=== PATIENT | male | born 1985 | race Caucasian/White ===

== ENCOUNTER 2018-11-12 18:35 | Inpatient (IN) | payer MEDICAID ==
[2018-11-12] MEDS ORDERED: NS 1,000 ML IV ONE (19:03)
--- NOTE | 2018-11-12 19:05 | EDPHY ---
General - History Smoking Status: Never smoked Time Seen by Provider: 11/12/18 19:03 Narrative: CLINICAL IMPRESSION: Multiple abrasions, left chest wall pain, distal right radius fracture, intractable pain ASSESSMENT/PLAN: Patient is a 33-year-old male who presents to the emergency department after sustaining a tumble down approximately 20 ft while Bouldering earlier today. Patient very uncomfortable appearing however not toxic-appearing. Patient's neurological exam is grossly normal with no focal deficit. The patient did not hit his head, there was no loss of consciousness. No findings to suggest traumatic head injury. Patient had no neck or back pain to suggest traumatic spinal injury. CT chest abdomen and pelvis all negative for acute traumatic injury. Right wrist x-ray revealed an acute, nondisplaced distal radius fracture. Patient is on Vivitrol dep 0 shot secondary to opiate abuse, last injection was 2 weeks ago. Patient was given Ativan, multiple doses of ketamine , Valium and fentanyl was trialed with little relief of his discomfort. This case was discussed with Dr. Warner, he will be admitted to the trauma service for intractable pain. Dr. Adamson with Orthopedic surgery was also consulted, he will evaluate the patient tomorrow. On secondary assessment and prior to transfer to the floor the patient had mild relief of his pain, he remained hemodynamically stable. DIFFERENTIAL DX: Differential diagnosis including but not limited to and in no particular order, traumatic head injury, skull fracture, vertebral fracture, spinal cord injury, cauda equina, long bone injury, compartment syndrome, traumatic intrathoracic or intra abdominal injury ED COURSE: 1904: Case discussed with Dr. Osuna, she will evaluate this patient. 2031: Still awaiting formal CT results. Patient reports 8/10 pain, mostly on his anterior left chest wall. Will trial ketamine. 2055: Case discussed with Dr. Gutierrez, he reviewed the chest CT and abdominal CT with me, no findings to suggest any acute intrathoracic or intra-abdominal traumatic injury. 2124: Discussed findings with the patient. Patient currently getting wounds cleansed, feels that the ketamine and Ativan did nothing for his discomfort. He would like to try ibuprofen. Patient does have an adverse reaction history to Toradol however takes ibuprofen regularly without any issue. CHIEF COMPLAINT: Fall, multiple abrasions, left-sided chest wall pain, right wrist pain HPI: Patient is a 33-year-old male with a history of Crohn's disease and opiate abuse who presents to the emergency department after sustaining a tumbling fall while Bouldering Patient reports he climbed up what he believes to be about 20 ft, he went to grab 1 of the rocks when he lost his stucco applicator causing him to fall. He rolled hitting his chest at 1 point and scraping his arms and legs through the process. He was by himself, there were no witnesses. He was able to ambulate and self extricate. He denies hitting his head, there was no loss of consciousness. He complains of left anterior chest wall pain which worsens when he takes a deep breath, right hip pain, right wrist pain and left lower leg pain as well as multiple abrasions. He has not tried to take anything for pain prior to arrival, he is on Vivitrol for previous opiate abuse. He denies any headache, dizziness, neck or back pain. He denies any abdominal pain. Patient denies saddle paresthesias, lower extremity numbness, tingling, major motor weakness, urinary retention or bowel/bladder incontinence. He is up-to- date on his tetanus status. PMH: Crohn's, opiate abuse Pertinent Past Surgical History: Right wrist Family History: Not contributory Social History: History of opiate abuse on Vivitrol qmonthly shot, occasional marijuana use, denies alcohol use REVIEW OF SYSTEMS: All other systems negative Constitutional: No fever, no chills, appetite change. Eyes: No discharge, vision change ENT: No sore throat, congestion, ear pain. Cardiovascular: Left anterior chest pain. Respiratory: No cough, no shortness of breath. Gastrointestinal: No abdominal pain, no vomiting, diarrhea. Genitourinary: No hematuria, dysuria, flank pain. Musculoskeletal: Right wrist pain, right hip pain, left lower leg pain. Skin: Multiple abrasions. Neurological: No headache, dizziness, weakness. PHYSICAL EXAM: General Appearance: Uncomfortable appearing however not toxic-appearing. HENT: Normocephalic, atraumatic. Bilateral external ears are normal. Bilateral tympanic membranes are normal with pearly pearson reflex. No Weber sign or raccoon eyes. Nares are clear, mucosa is pink. Oropharynx is clear, uvula is midline. There is no tonsillar enlargement or exudate. The dentition is normal. There is no malocclusion, no mandibular tenderness to palpation. Eyes: PERRLA, EOMI. Conjunctiva pink, no pallor or injection. Neck: Supple, nontender, no midline pain, FROM. Back: No step-off, palpable bony abnormality, edema, erythema or ecchymosis of the thoracic or lumbar spines. TTP: Patient has no tenderness to palpation of the midline thoracic or lumbar spines, no paraspinal muscle tenderness to palpation. Full range of motion of all spines. There is a small abrasion noted to the left mid posterior thorax with no associated tenderness to palpation. 5/5 and equal strength of the UEs and LEs bilaterally including shoulder shrug. Pulses: 2+ and equal radial, DP and PT pulses bilaterally. Sensation intact and symmetric to light touch from face, UEs and LEs bilaterally. Respiratory: There are no retractions, lungs are clear to auscultation. Patient with abrasions noted to the inferior left rib costal margin with associated tenderness to palpation. There is no bony deformity. Cardiac: Regular rate and rhythm, no murmurs or gallops. Gastrointestinal: Patient with abrasion overlying his left abdomen, there is no tenderness to deep palpation in any quadrant. Bowel sounds are present, no masses or hernias appreciated. There is no rigidity, guarding or focal peritoneal findings. Neurological: Alert and oriented x 3, CN 2-12 grossly intact, normal sensation and strength Skin: Multiple abrasions, no gaping wounds or lacerations. Musculoskeletal: Bilateral shoulders are nontender with full range of motion. Left upper arm with abrasion on the medial aspect, upper arm compartment is soft. Bilateral elbows are nontender with full range of motion. Patient is able to supinate and pronate bilaterally without difficulty. Bilateral forearms with superficial abrasions on the volar aspects. Forearm compartments are both soft. Left wrist and hand are nontender with full range of motion. Right wrist is tender at the distal radius and ulna with deformity noted. Limited range of motion with flexion, extension, inversion and eversion. He has no carpal or metacarpal tenderness. Abrasion noted to middle phalanx. Mild diminished sensation over the dorsal aspect of his right hand, surgical incision noted and well healed. The radial, ulnar and median nerves were all tested bilaterally. Radial nerve: Patient is able to extend wrist and fingers of the local joints. Ulnar nerve: Patient is able to abduct all fingers. Median nerve patient is able to oppose thumb to pinky. Radial pulse 2 +bilaterally. Two point discrimination is intact distally at all digits. Pelvis is stable and nontender. Patient with an abrasion overlying his right lateral thigh, thigh compartment is soft however he is tender. Bilateral knees are nontender with full range of motion. Left anterior loomis with superficial abrasion from inferior to knee to ankle, he has tenderness overlying the tibia. Bilateral ankles are nontender-there is no medial or lateral malleolar tenderness. There is no navicular or 5th metatarsal tenderness. Dorsalis pedis 2+ bilaterally. Psychiatric: Mood and affect are normal, there is no agitation. MEDICAL DECISION MAKING: Patient was seen by myself and Dr. Osuna. Diagnosis: Multiple abrasions, distal right radius fracture, intractable pain. Summary: See Assessment and Plan for summary of ED visit Clinical lab tests: ordered / reviewed. Independent visualization of images, tracing, or specimens: Yes. Decision to obtain medical records or history from someone other than the patient: No Review / Summarize previous medical records: Yes Discussed patient with another provider: Yes, Dr. Osuna Patient Progress: Stable, admit. (Hazel Locke) Medical Decision Making: I, Dr. Angelica Osuna, evaluated this patient. He reports falling approximately 20 feet in total, striking his left chest while he fell. He has abrasions to the left chest wall, left bicep, left abdomen, and left loomis. He has a ecchymosis and deformity to the right wrist. He reports pain in his left chest, right wrist, right hip, and left loomis. There is no head trauma, no neck pain or stepoff, and no midline back pain. I conferred with Columba Locke on this patient and agree with the course of action. Patient underwent imaging studies in the emergency department including a CT scan of his chest and abdomen pelvis without any acute findings. X-rays demonstrate distal radius fracture on the right. While in the emergency department patient had significant amounts of pains with difficult to control. Because of his Vivitrol, narcotic pain medication was not administered. Patient reports he has had a significant reaction to tore lack. In face of this the patient received IV ketamine as well as Ativan for pain control. This was suboptimal. Patient was admitted to General surgery for ongoing pain control to possibly include ketamine drip. Dr. Mendoza will be the accepting physician. Dr. Weiss, on-call for Orthopedic surgery, was consulted to see the patient in the hospital with respect to his distal radius fracture. (Angelica Osuna) - Objective Vital Signs: Initial Vital Signs Temperature (C) 36.7 C 11/12/18 18:40 Heart Rate 109 H 11/12/18 18:40 Respiratory Rate 18 11/12/18 18:40 Blood Pressure 146/107 H 11/12/18 18:40 O2 Sat (%) 95 11/12/18 18:40 O2 Delivery Mode Room Air Allergies/Adverse Reactions: ketorolac [From Toradol] Allergy (Severe, Verified 11/13/18 10:34) Difficulty breathing, flushed face Opioids - Morphine Analogues Allergy (Verified 11/12/18 18:40) Home Medications: Medication Instructions Recorded Bacitracin Zinc [Bacitracin 1 tanya TP BID #20 oint 11/13/18 Ointment Tube] Dextroamphetamine/Amphetamine 30 mg PO BID PRN 11/13/18 [Adderall 30 mg Tablet] Herbals/Supplements -Info Only 1 ea PO DAILY 11/13/18 Losartan Potassium [Cozaar 50 mg 50 mg PO DAILY 11/13/18 (*)] Tylenol Ultra Relief 2 tab PO DAILY PRN 11/13/18 Vivitrol 380mg 380 mg IM Q28D 11/13/18 Zolpidem Tartrate [Ambien] 10 mg PO HS PRN 11/13/18 Laboratory Results: Laboratory Results 11/12/18 20:03 11/12/18 20:03 Medications Given: Discontinued Medications Acetaminophen (Tylenol) 1,000 mg PO EDNOW ONE Stop: 11/12/18 21:21 Last Admin: 11/12/18 21:40 Dose: 1,000 mg Bacitracin (Bacitracin Ointment Tube) 1 tanya TP BID RON Stop: 12/13/18 08:59 Last Admin: 11/13/18 08:25 Dose: 1 tanya Diazepam (Valium) 5 mg IVP EDNOW ONE Stop: 11/12/18 23:04 Last Admin: 11/12/18 23:21 Dose: 5 mg Fentanyl (Sublimaze) 75 mcg IVP EDNOW ONE Stop: 11/12/18 23:04 Last Admin: 11/12/18 23:20 Dose: 75 mcg Sodium Chloride (Ns) 1,000 mls @ 0 mls/hr IV ONCE ONE; Wide Open PRN Reason: Protocol Stop: 11/12/18 19:04 Last Admin: 11/12/18 20:08 Dose: 1,000 mls Potassium Chloride/Dextrose/Sod Cl (D5w 1/2 Ns W/ 20 Kcl/L) 1,000 mls @ 100 mls /hr IV CONT RON Stop: 05/12/19 00:29 Last Admin: 11/13/18 00:56 Dose: 1,000 mls Ketamine HCl 500 mg/ Dextrose 510 mls @ 0 mls/hr IV CONT RON; Per Protocol PRN Reason: Protocol Stop: 05/12/19 00:29 Last Admin: 11/13/18 00:56 Dose: 510 mls Ibuprofen (Motrin) 600 mg PO EDNOW ONE Stop: 11/12/18 21:41 Last Admin: 11/12/18 21:44 Dose: 600 mg Ibuprofen (Motrin) 600 mg PO EDNOW ONE Stop: 11/12/18 21:42 Last Admin: 11/12/18 21:45 Dose: Not Given Ibuprofen (Motrin) 600 mg PO Q6HRS RON Stop: 05/12/19 05:59 Last Admin: 11/13/18 07:29 Dose: 600 mg Ketamine HCl (Ketamine) 20 mg IVP EDNOW ONE Stop: 11/12/18 20:38 Last Admin: 11/12/18 20:51 Dose: 20 mg Ketamine HCl (Ketamine) 10 mg IM EDNOW ONE Stop: 11/12/18 22:08 Last Admin: 11/12/18 22:09 Dose: Not Given Ketamine HCl (Ketamine) 10 mg IV ONCE ONE Stop: 11/12/18 22:12 Last Admin: 11/12/18 22:16 Dose: 10 mg Lorazepam (Ativan Injection) 1 mg IVP EDNOW ONE Stop: 11/12/18 19:26 Last Admin: 11/12/18 20:09 Dose: 1 mg Tetracaine/Epinephrine/Lidocaine (Let Gel Topical) 3 ea TP EDNOW ONE Stop: 11/12/18 21:00 Last Admin: 11/12/18 21:06 Dose: 3 ea Point of Care Test Results: Chemistry 11/12/18 20:07 POC Sodium 140 mEq/L mEq/L (135-145) POC Potassium 3.9 mEq/L mEq/L (3.3-5.0) POC Chloride 104 mEq/L mEq/L (97-110) POC Total CO2 25 mEq/L mEq/L (22-31) POC BUN 18 mg/dL mg/dL (7-23) POC Creatinine 1.0 mg/dL mg/dL (0.7-1.3) POC Glucose 96 mg/dL mg/dL (70-100) ISTAT H&H 11/12/18 20:07 POC Hgb 17.7 gm/dL H gm/dL (13.7-17.5) POC Hct 52 % H % (40-51) Departure - Departure Disposition: [facility] Acute Condition: Fair
[2018-11-12] MEDS ORDERED: IOPAMIDOL (ISOVUE-300) 100 ML BTL ONE (19:16)
[2018-11-12] MEDS ORDERED: LORazepam 2 MG/ML INJ IVP ONE (19:25)
[2018-11-12 20:13] LABS: PLATELET COUNT 224 10^3/uL (150-400)
[2018-11-12] MEDS ORDERED: KETAMINE 200 MG/20 ML VIAL IVP ONE (20:37)
[2018-11-12] MEDS ORDERED: LET GEL TOPICAL 1 EA SYR TP ONE (20:59)
[2018-11-12] MEDS ORDERED: ACETAMINOPHEN 500 MG TAB PO ONE (21:20)
[2018-11-12] MEDS ORDERED: IBUPROFEN 600 MG TAB PO ONE ×2 (21:40→21:41)
[2018-11-12] MEDS ORDERED: KETAMINE 500 MG/10 ML VIAL IM ONE (22:07)
[2018-11-12] MEDS ORDERED: KETAMINE 200 MG/20 ML VIAL IV ONE (22:11)
[2018-11-12] MEDS ORDERED: fentaNYL 100 MCG/2 ML INJ IVP ONE (23:03)
[2018-11-12] MEDS ORDERED: DIAZEPAM 10 MG/2 ML SYR IVP ONE (23:03)
[2018-11-13] MEDS ORDERED: ACETAMINOPHEN 325 MG TAB PO PRN (00:20)
[2018-11-13] MEDS ORDERED: ONDANSETRON 4 MG/2 ML VIAL IVP PRN (00:20)
[2018-11-13] MEDS ORDERED: DIAZEPAM 5 MG TAB PO PRN (00:20)
--- NOTE | 2018-11-13 00:29 | PDGENHP ---
History and Physical - Chief Complaint fall, chest pain - History of Present Illness 33yo M who was free climbing, sustained about a 20ft fall down a hill tumbling most of the way. He denies hitting his head or LOC. On scene, was CO severe R wrist pain and L chest pain. Was transported to [facility] as a trauma. Here, R wrist was splinted. Is on Vivitrol a long-acting opioid antagonist for HX of opioid abuse. Pain control has been an issue, the only thing that appears to be working is IV ketamine. The wrist pain is sharp, non-radiating, worse with activity and 8/10 in intensity. 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 Review of Systems Review of Systems: ROS: 10pt was reviewed & negative except for what was stated in HPI & below Physical Exam Physical Exam: Temp Pulse Resp BP Pulse Ox 36.9 C 99 18 140/87 H 93 11/12/18 23:22 11/13/18 00:09 11/13/18 00:09 11/13/18 00:09 11/13/18 00:09 Constitutional: appears nourished, not in pain, uncomfortable Eyes: PERRL, anicteric sclera, EOMI Ears, Nose, Mouth, Throat: moist mucous membranes, hearing normal, ears appear normal, no oral mucosal ulcers Cardiovascular: regular rate and rhythym, no murmur, rub, or gallop, No edema Respiratory: no respiratory distress, no rales or rhonchi, clear to auscultation , other (chest is tender on L side inferiorly. No crepitus or palpable fx ) Gastrointestinal: normoactive bowel sounds, soft, non-tender abdomen, no palpable masses Genitourinary: no bladder fullness, no bladder tenderness Skin: warm, normal color, no fluctuance, no induration, other (multiple abrasions on BLE, all superficial and appropriately dressed ), No mottled Musculoskeletal: full muscle strength, no muscle tenderness, normal joint ROM, no joint effusions Neurologic: AAOx3, sensation intact bilaterally, No weakness, No numbness Psychiatric: interacting appropriately, not anxious, not encephalopathic, thought process linear Lymph, Heme, Immunologic: no cervical LAD, no supraclavicular LAD Lab Data & Imaging Review 11/12/18 20:03 11/12/18 20:03 WBC 14.15 10^3/uL (3.80-9.50) H 11/12/18 20:03 RBC 5.49 10^6/uL (4.40-6.38) 11/12/18 20:03 Hgb 17.2 g/dL (13.7-17.5) 11/12/18 20:03 POC Hgb 17.7 gm/dL (13.7-17.5) H 11/12/18 20:07 Hct 49.3 % (40.0-51.0) 11/12/18 20:03 POC Hct 52 % (40-51) H 11/12/18 20:07 MCV 89.8 fL (81.5-99.8) 11/12/18 20:03 MCH 31.3 pg (27.9-34.1) 11/12/18 20:03 MCHC 34.9 g/dL (32.4-36.7) 11/12/18 20:03 RDW 12.5 % (11.5-15.2) 11/12/18 20:03 Plt Count 224 10^3/uL (150-400) 11/12/18 20:03 MPV 9.3 fL (8.7-11.7) 11/12/18 20:03 Neut % (Auto) 77.7 % (39.3-74.2) H 11/12/18 20:03 Lymph % (Auto) 14.0 % (15.0-45.0) L 11/12/18 20:03 [place] % (Auto) 6.8 % (4.5-13.0) 11/12/18 20:03 Eos % (Auto) 0.5 % (0.6-7.6) L 11/12/18 20:03 Baso % (Auto) 0.4 % (0.3-1.7) 11/12/18 20:03 Nucleat RBC Rel Count 0.0 % (0.0-0.2) 11/12/18 20:03 Absolute Neuts (auto) 11.00 10^3/uL (1.70-6.50) H 11/12/18 20:03 Absolute Lymphs (auto) 1.98 10^3/uL (1.00-3.00) 11/12/18 20:03 Absolute Monos (auto) 0.96 10^3/uL (0.30-0.80) H 11/12/18 20:03 Absolute Eos (auto) 0.07 10^3/uL (0.03-0.40) 11/12/18 20:03 Absolute Basos (auto) 0.06 10^3/uL (0.02-0.10) 11/12/18 20:03 Absolute Nucleated RBC 0.00 10^3/uL (0-0.01) 11/12/18 20:03 Immature Gran % 0.6 % (0.0-1.1) 11/12/18 20:03 Immature Gran # 0.08 10^3/uL (0.00-0.10) 11/12/18 20:03 POC Sodium 140 mEq/L (135-145) 11/12/18 20:07 Sodium 136 mEq/L (135-145) 11/12/18 20:03 POC Potassium 3.9 mEq/L (3.3-5.0) 11/12/18 20:07 Potassium 4.2 mEq/L (3.5-5.2) 11/12/18 20:03 POC Chloride 104 mEq/L (97-110) 11/12/18 20:07 Chloride 103 mEq/L (97-110) 11/12/18 20:03 Carbon Dioxide 23 mEq/l (22-31) 11/12/18 20:03 POC Total CO2 25 mEq/L (22-31) 11/12/18 20:07 Anion Gap 10 mEq/L (6-14) 11/12/18 20:03 POC BUN 18 mg/dL (7-23) 11/12/18 20:07 BUN 18 mg/dL (7-23) 11/12/18 20:03 Creatinine 1.0 mg/dL (0.7-1.3) 11/12/18 20:03 POC Creatinine 1.0 mg/dL (0.7-1.3) 11/12/18 20:07 Estimated GFR > 60 11/12/18 20:03 Glucose 93 mg/dL (70-100) 11/12/18 20:03 POC Glucose 96 mg/dL (70-100) 11/12/18 20:07 Calcium 9.7 mg/dL (8.5-10.4) 11/12/18 20:03 Visualized and Interpreted imaging results: Yes Interpretation: CT chest, abdomen, pelvis: no injuries identified with specific attention to the left chest. R wrist film: distal radius fx Assessment & Plan Assessment: 33yo M Hx of Opioid abuse s/p fall c abrasions, R distal radius fx (splinted) Plan: Attempt was made to send the patient home but he is having significant amts of pain which are only controlled with Ketamine given his depo Vivitrol shots - admit to trauma service, will go to SDU/ICU for ketamine infusion - Reg diet - IV fluids - cont to watch L chest, no ostensible trauma but very tender - ortho consult, will see in AM currently splinted.
[2018-11-13] MEDS ORDERED: KETAMINE 500 MG in D5W 500 ML IV SCH (00:30)
[2018-11-13] MEDS: D5W 1/2 NS W/ 20 KCl/L 1,000 ML IV SCH ×2 (00:32→00:56)
[2018-11-13] MEDS ORDERED: IBUPROFEN 600 MG TAB PO SCH (06:00)
--- NOTE | 2018-11-13 06:57 | PDCONSULT ---
Behavioral Health Rn Note: Orthopedic Consult DOS 11/13/2018 CC: RIght wrist pain HPI: Called by ED to see patient on floor. 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 In ED , distal radius fracture noted. H/o multiple fractures in Right wrist before. Surgery ~5 years ago in right wrist. DOes not take opioids due to long acting opioid antagonist use. 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 unlabored breathing - some pain with deep inspiration upper left chest mild TTP along chest wall upper left chest anterior RUE: SILT A/R/U/M. TTP at distal radius. + EPL/APB/FDS/FDP2,5/IO, BCR x 5. BLE: SILT S/S/SP/DP/T. 10/24 Q/TA/GS/FHL/EHL. WWP. Left side has multiple abrasions LUE: SILT A/R/U/M. Moving shouler/elbow/wrist without pain. 5 EPL/APB/FDS/FDP2 ,5/IO, BCRx5 Imaging: minimally displaced right distal radius fracture with pre-existing changes from prior healed fractures. plate and screws in 3rd Metacarpal. 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 Adamson. Call [phone] - Elevate RUE for comfort.
--- NOTE | 2018-11-13 07:13 | PDMN ---
Medical Necessity Medical necessity: Pt meets IP criteria per MD & MCG MG-MD Musculoskeletal Disease; est los >2 mn for eval/tx of R distal radius fx s/p fall from 20ft w/ significant amounts of pain only controlled w/Ketamine given depo Vivitrol shots ; admit to SDU/ICU for Ketamine infusion & Ortho consult; hx opioid abuse
[2018-11-13] MEDS ORDERED: BACITRACIN ZINC 0.5 OZ OINTTUBE TP SCH (09:00)
--- NOTE | 2018-11-13 10:00 | TRAUMAPNT ---
Trauma Tertiary Progress Note New Findings: Pain in the region of the left pectoralis major muscle getting better. CT scan of the chest reviewed no acute findings no bony injury. Assessment/Plan: This is a 33-year-old gentleman with a history of opiate abuse who presented to the hospital after fall down a jelani embankment. The patient has sustained right forearm fracture and abrasions to his left tibia. He has been seen by Dr. Adamson orthopedic surgery he is in a splint and will follow up with Dr. Squires on Thursday of this week. Pain has been controlled with ketamine as he is unable to get opiates due to use of a depot anti opiate medication (Vivtrol). A girlfriend is present at the patient is in good spirits this morning his pain is controlled off the ketamine drip. Alert oriented to person place and time Regular rate and rhythm Clear to auscultation bilaterally Abdomen soft nontender nondistended Left chest minimally tender to deep full range of motion of left shoulder. Distally neurovascularly intact right upper extremity. Left medial anterior tibia has abrasions covered with Xeroform dressing. Two Nonfocal neurologic exam No other injuries identified Patient is doing well with nonnarcotic medications for pain. He will follow up with Dr. Squires on Thursday. We will watch him until this afternoon if he has no rebound of his pain off ketamine we will transition him to the floor or home. All questions were addressed Objective: Vital Signs Temp Pulse Resp BP Pulse Ox 36.5 C 78 24 H 126/104 H 91 L 11/13/18 07:26 11/13/18 09:22 11/13/18 09:22 11/13/18 09:22 11/13/18 09:22 11/12/18 11/13/18 11/14/18 05:59 05:59 05:59 Intake Total 700 Output Total 550 Balance 700 -550
--- NOTE | 2018-11-13 11:21 | ASMTCMCOM ---
CM Note CM Note Notes: Patient admitted with a distal radius fracture after falling while rock climbing. He has a hx of opiate abuse for which he is on a Vivitrol regimen. Given this, his pain was out of control until he received Ketamine. He is currently doing well, supported by girlfriend, and will likely d/c independently today. He has a f/u appt w Dr Adamson of ortho on Thursday 11/16. Date Signed: 11/13/2018 11:20 AM Electronically Signed By:Nadeen Aiken RN
--- NOTE | 2018-11-13 12:05 | ASMTLACE ---
LACE Length of stay for Answers: Less than 1 day current admission Acuity / Level of Answers: Yes Care: Did the patient have an inpatient admission? # of Emergency department Answers: 1-2 visits in the last 6 months Social determinants Answers: History of substance abuse (ETOH, street drugs, prescription drugs, etc.) Score: 7 Date Signed: 11/13/2018 12:04 PM Electronically Signed By:Nadeen Aiken RN
[2018-11-13 12:23] VITALS: BP 124/98
== END 2018-11-13 12:23 | disposition home or self-care (01) | DRG 342 ==
LOC: OBSVTOIN 11-13 00:23 → F2N 11-13 00:23
PROVIDERS: ADMIT Surgery; ATTEND Surgery
DX: S59.291A Other physeal fracture of lower end of radius, right arm, initial encounter for closed fracture (principal); E86.9 Volume depletion, unspecified; S40.812A Abrasion of left upper arm, initial encounter; S50.812A Abrasion of left forearm, initial encounter; S50.811A Abrasion of right forearm, initial encounter; S80.819A Abrasion, unspecified lower leg, initial encounter; R07.89 Other chest pain; W17.89XA Other fall from one level to another, initial encounter; Y93.31 Activity, mountain climbing, rock climbing and wall climbing
CPT/HCPCS: 82435-PO; 82565-PO; 82947-PO; 84132-PO; 84295-PO; 84520-PO; 85014-ER; 92523-GN; 96374; 97161-GP; 97165-GO; A4565; J2060; J3010; J3360; Q9967